=== PATIENT | male | born 1985 | race Caucasian/White ===

== ENCOUNTER 2017-07-15 07:46 | Inpatient (IN) | payer OTHER ==
[~2017-07-15] VITALS: Ht 180.3 cm; Wt 63.5 kg
[2017-07-15 13:49] VITALS: BP 108/63
--- NOTE | 2017-07-15 13:52 | NUR ---
PRE ASSESSMENT: PT IS IN INTAKE A/O X 4. HIS GAIT IS STEADY. SCAB NOTED TO NOSE. HE STATES HE GOT IT SURFING. HE REPORTS ALLERGY TO CECLOR. HE STATES HE DRINKS 750 ML OF WHISKEY 3-4 DAYS WEEKLY AND TAKES VALIUM 30 MG PO ON DAYS HE DOES NOT DRINK WHICH IS 2-3 X WEEKLY. HE STATES THE VALIUM WAS PRESCRIBED TO COME OFF ETOH WHICH HE HAS BEEN UNSUCCESSFUL. HE STATES HE CANNOT STOP DRINKING ON HIS OWN AND NEEDS HELP. PT DENIES SEIZURE HX. HE DENIES MEDICAL HX. WILL ASSESS PT ON UNIT.VS WNL.
[2017-07-15] MEDS ORDERED: THIAMINE HCL 200 MG/2 ML VIAL IM ONE (14:15)
[2017-07-15] MEDS ORDERED: ONDANSETRON 4 MG/2 ML VIAL IM PRN (14:15)
[2017-07-15] MEDS ORDERED: LORAZEPAM 1 MG TABLET PO PRN ×2 (14:15)
[2017-07-15] MEDS ORDERED: ONDANSETRON ODT 4 MG TAB.RAPDIS SL PRN (14:15)
[2017-07-15] MEDS ORDERED: DICYCLOMINE HCL 20 MG TABLET PO PRN (14:15)
[2017-07-15] MEDS ORDERED: LOPERAMIDE HCL 2 MG CAPSULE PO PRN ×2 (14:15)
[2017-07-15] MEDS ORDERED: MAG HYDROX/AL HYDROX/SIMETH 30 ML LIQUID UDC PO PRN (14:15)
[2017-07-15] MEDS ORDERED: MIRALAX 17 GM POWD.PACK PO PRN (14:15)
[2017-07-15] MEDS ORDERED: NICOTINE POLACRILEX 4 MG GUM-PK OF TEN BC PRN (14:15)
[2017-07-15] MEDS ORDERED: MAGNESIUM HYDROXIDE 30 ML LIQUID UDC PO PRN (14:15)
[2017-07-15] MEDS ORDERED: LORAZEPAM 2 MG/1 ML VIAL IM PRN (14:15)
[2017-07-15] MEDS ORDERED: CLONIDINE HCL 0.1 MG TABLET PO PRN (14:15)
[2017-07-15] MEDS ORDERED: IBUPROFEN 400 MG TABLET PO PRN (14:15)
[2017-07-15 14:51] LABS: *AMPHETAMINE, URINE NEGATIVE (NEGATIVE); *BARBITURATE, URINE NEGATIVE (NEGATIVE); *CANNABINOID, URINE POSITIVE (NEGATIVE); *COCCAINE, URINE NEGATIVE (NEGATIVE); *OPIATE, URINE NEGATIVE (NEGATIVE); *PHENCYCLIDINE SCREEN,URINE NEGATIVE (NEGATIVE)
[2017-07-15 15:37] LABS: BASOPHILS % (AUTO) 0.7 % (0.0-2.0); EOSINOPHILS # (AUTO) 0.1 K/uL (0.0-0.7); EOSINOPHILS % (AUTO) 2.2 % (0.0-7.0); HEMATOCRIT 49.5 % (40-50); HEMOGLOBIN 16.2 G/DL (14.0-18.0); LYMPHOCYTES # (AUTO) 1.5 K/UL (0.8-4.8); LYMPHOCYTES % (AUTO) 28.7 % (20.5-51.5); MEAN CORPUSCULAR HEMOGLOBIN 31.4 UUG (27.0-31.0); MEAN CORPUSCULAR HGB CONC 33 g/dL (32.0-37.0); MEAN CORPUSCULAR VOLUME 95.6 FL (82.0-92.0); MONOCYTES # (AUTO) 0.2 K/UL (0.1-1.30); MONOCYTES % (AUTO) 3.8 % (0.0-11.0); NEUTROPHILS # (AUTO) 3.4 K/UL (1.8-8.9); NEUTROPHILS % (AUTO) 64.6 % (38.5-71.5); PLATELET COUNT (AUTO) 274 K/UL (150-450); RED BLOOD CELL COUNT(AUTO) 5.18 MIL/UL (4.7-6.1); WHITE BLOOD COUNT (AUTO) 5.2 K/UL (4.0-11.2)
[2017-07-15] MEDS: LORAZEPAM 1 MG TABLET PO SCH ×3 (15:38→21:13)
--- NOTE | 2017-07-15 15:40 | NUR ---
ADMISSION: A 31 YO MALE ADMITTED FOR MEDICALLY SUPERVISED WITHDRAWAL OF ETOH. HE REPORTS DRINKING 750 ML OF WHISKEY 3 TO 4 TIMES WEEKLY AND ON THE DAYS HE DOES NOT DRINK HE TAKES 30 MG PO OF VALIUM. HE ALSO REPORTS SMOKING 2 JOINTS DAILY OF MARIJUANA. THE VALIUM HE HAS BEEN TAKING FOR 1 MONTH HE WENT TO AND GOT RX TO TRY AND STOP DRINKING ON HIS OWN.HE STATES HE LAST DRANK YESTERDAY LATE AFTERNOON AND TOOK VALIUM THIS AM AROUND 7 AM AND SMOKED A JOINT AT 7AM THIS MORNING.HE STATES [facility] 16 [facility] BEEN IN A TREATMENT FACILITY SINCE THEN . HE HAS BEEN DRINKING IN THIS PATTERN FOR 4 YEARS. HE STATES HE CANNOT STOP DRINKING ON HIS OWN AND NEEDS HELP.HE DENIES SEIZURE HX. HE REPORTS MEDICAL HX OF HEPATITIS C AND CHRONIC LOWER BACK PAIN. HE DENIES A PCP. HE STATES HE LOST HIS JOB DUE TO HIS DRINKING AND HIS IS READY TO LEAVE HIM WITH A BABY ON THE WAY.HE STATES HE BECOMES VERBALLY ABUSIVE WHEN HE DRINKS AND BLACKS OUT. ORIENTED PT TO STAFF AND UNIT. HE PRESENTS WITH FINE TREMORS AND ANXIOUS MOOD. HE REPORTS FEELING ANXIOUS AND RESTLESS. TIERA Butler MD ASSESSED PT. THIAMINE INJECTION ORDERED AND ADMINISTERED. ATIVAN 2 MG PO ALSO ORDERED AND ADMINISTERED. WILL PROVIDE SAFE AND SUPPORTIVE ENVIRONMENT. WILL MONITOR EFFECTIVENESS OF ATIVAN.
[2017-07-15 16:00] VITALS: BP 100/60
[2017-07-15 16:12] LABS: BILIRUBIN,TOTAL 0.5 mg/dL (0.2-1.0); CREATININE 0.9 mg/dL (0.6-1.3); POTASSIUM 3.7 mmol/L (3.5-5.1); TOTAL PROTEIN, SERUM 7.6 g/dL (6.4-8.2)
--- NOTE | 2017-07-15 17:10 | NUR ---
PT IS LAYING IN BED SLEEPING. RESPIRATIONS EVEN AND UNLABORED. CALL VALLADARES IN REACH. BED LOCKED AND LOW. ATIVAN WAS EFFECTIVE . CIWA DEFERRED AT 1600.
--- NOTE | 2017-07-15 19:08 | NUR ---
END OF SHIFT: NEW ADMIT STARTED ON ATIVAN TAPER. HE RECEIVED 2 DOSES. 1600 CIWA DEFERRED HE WAS ASLEEP. ENCOURAGED HIM TO INCREASE FLUIDS. HE IS IN BED WATCHING TV. CALL VALLADARES IN REACH. BED LOCKED AND LOW.
--- NOTE | 2017-07-15 19:50 | NUR ---
START OF SHIFT REPORT RECEIVED FROM AM NURSE. PATIENT IS A 31 YEAR OLD MALE ADMITTED TO [facility] ON 07-15-17 FOR ETOH AND BENZO DETOX. PATIENT HAS ALLERGY TO CECLOR. IS A FULL CODE AND ON A REGULAR DIET. ON FALL AND SEIZURE PRECAUTIONS. PAST MEDICAL HISTORY OF HEPATITIS C AND CHRONIC BACK PAIN. PATIENT ON A FIVE DAY ATIVAN TAPER. LAST CIWA 9 AT 1430. VITAL SIGNS STABLE. DENIES ANY SI OR HI. SAFETY MEASURES IN PLACE, CALL LIGHT WITHIN REACH.
[2017-07-15 20:00] VITALS: BP 120/72
[2017-07-15] MEDS: diphenhydrAMINE 50 MG CAPSULE PO PRN (21:14)
--- NOTE | 2017-07-15 21:14 | NUR ---
PRN MEDICATION BENADRYL 50 MG PO ADMINISTERED AT 2113 FOR COMPLAINTS OF INSOMNIA. EFFECT PENDING.
--- NOTE | 2017-07-15 22:16 | NUR ---
REASSESSMENT OF PATIENT PATIENT REASSESSED ONE HOUR AFTER ADMINISTRATION OF BENADRYL 50 MG PO GIVEN FOR INSOMNIA. PATIENT WITH EYES CLOSED, RESTING COMFORTABLY IN BED. BREATHING EVEN AND UNLABORED. APPEARS EFFECTIVE
[2017-07-16] VITALS: BP 97/57
--- NOTE | 2017-07-16 | NUR ---
CIWA DEFERRED 0000 CIWA DEFERRED FOR SLEEP.
[2017-07-16 04:00] VITALS: BP 98/58
[2017-07-16 06:06] LABS: HEPATITIS B SURFACE AG Negative (Negative)
--- NOTE | 2017-07-16 06:47 | NUR ---
End of shift note Patient is a 31 year old male admitted to [facility] on 07-15-17 for alcohol and benzo detox. Patient is on a five day ativan taper. He is alert and oriented x 4. He is on both seizure and fall precaution. Allergy to Ceclor. Full code regular diet. Vital signs at 2000 BP 120/72,P 92, R 18, SPO2 98% on RA, T 98.2. CIWA 9. VITAL SIGNS AT 0000 BP 97/57, P 70, R 16, SPO2 97% ON RA T 97.7 CIWA DEFERRED FOR SLEEP. VS AT 0400 BP 98/58, P 60, R 16, SPO2 98% ON RA, T 97.9. CIWA 5. Patient received prn Benadryl 50 mg for sleep with good effect. Mood stable, affect flat. Intake: 2500 ML, output: 3 VOIDS. Total hours of sleep 9. Safety measures in place. Report to am nurse.
--- NOTE | 2017-07-16 07:37 | NUR ---
START OF SHIFT Pt 31 y/o male admitted for etoh dependence. Pt received in room with eyes closed resting, but easily arousable to name. Pt alert and oriented to name, place, and time. Perrla. Skin warm and slightly moist to touch. Bilateral hand tremors noted. It was reported that pt slept 9 hours last night. Bed on lowest position with side rails x2 up for safety. Call light within reach. No distress noted at this time.
[2017-07-16 08:00] VITALS: BP 98/62
[2017-07-16] MEDS ORDERED: TUBERCULIN,PURIF.PROT.DERIV. 5 TU/0.1 ML TEST ID ONE (09:00)
[2017-07-16] MEDS: NICOTINE 7 MG/24HR PATCH TD SCH (09:12)
[2017-07-16] MEDS: LORAZEPAM 1 MG TABLET PO SCH ×3 (09:12→20:56)
[2017-07-16] MEDS: THIAMINE HCL 100 MG TABLET PO SCH (09:12)
[2017-07-16] MEDS: FOLIC ACID 1 MG TABLET PO SCH (09:12)
[2017-07-16] MEDS: MULTIVITAMINS,THERAPEUTIC TABLET PO SCH (09:12)
[2017-07-16] MEDS ORDERED: LORAZEPAM 1 MG TABLET PO ONE (12:00)
--- NOTE | 2017-07-16 12:07 | NUR ---
ONE TIME DOSE Pt with ciwa=7.Pt was seen by MD with new order for ativan 2mg po x1 dose noted and carried out.
[2017-07-16 12:08] VITALS: BP 101/60
--- NOTE | 2017-07-16 13:07 | NUR ---
ONE TIME DOSE EVAL Pt with ciwa =3.
[2017-07-16] MEDS: GABAPENTIN 300 MG CAPSULE PO SCH ×2 (14:07→20:56)
[2017-07-16 16:00] VITALS: BP 110/64
--- NOTE | 2017-07-16 17:10 | NUR ---
Therapist prompted client about group times. Client stated he is not feeling well today and will try to go to groups tomorrow.
--- NOTE | 2017-07-16 18:37 | NUR ---
END OF SHIFT Pt 31 y/o male admitted for etoh dependence. Pt alert and oriented to name, place, and time. Perrla. Skin warm and slightly moist to touch. Respirations even and unlabored. Bilateral hand tremors noted. Pt observed mostly isolative to room throughout the day. Pt did not attend group activity. Pt was seen by MD today. Pt medication compliant and tolerated well. No ASE noted. Bed on lowest position with side rails x 2 up for safety. Call light within reach. No distress noted at this time.
--- NOTE | 2017-07-16 19:15 | NUR ---
Start of Shift Note: Patient is a 31 y/o male admitted on 07/15/17 for ETOH and Benzo dependence. Patient reported drinking 750ml of Vodka 3x-4x a week. Patient also taking Valium 30mg PO 2x-3x a week & smokes Marijuana 2 joints daily. Patient has PMHx of Hepatitis C and Chronic Back pain. No seizure history noted. Patient is on a regular diet with allergies to Ceclor. Full Code status noted. Patient is on a 5-day Ativan taper and tolerating well. Pt is currently on day #2 and his last Ciwa is 2 at 1600. Patient received a one time Ativan 2mg @ 1204 per MD's order. No PRN medications were given. Patient is alert & oriented x4. No shortness of breath noted. Respiration even & unlabored. Abdomen soft & non-distended. No nausea/vomiting noted. Patient denies any pain/discomfort. Slight hand tremors noted. Patient denies any hallucinations at this time. Safety measures in place. Bed locked in lowest position. Both side rails up. Call light within pt's reach. Will continue to monitor patient.
[2017-07-16 20:00] VITALS: BP 108/71
[2017-07-16] MEDS: diphenhydrAMINE 50 MG CAPSULE PO PRN (20:56)
--- NOTE | 2017-07-16 20:56 | NUR ---
PRN Benadryl Patient requesting medication to help him sleep. PRN Benadryl administered as ordered. Will continue to monitor patient.
[2017-07-17] VITALS: BP 90/55
[2017-07-17 04:00] VITALS: BP 96/55
--- NOTE | 2017-07-17 07:14 | NUR ---
End of Shift Note: Patient had an uneventful night. Patient continues on his Ativan taper and tolerating well. Last CIWA is 3. Patient reported that medication is effective in controlling his withdrawal symptoms. PRN Benadryl was given to patient during my shift and was effective. Patient remained stable and vitals remains WNL. Patient remains compliant with medications and treatment plan. Patient is alert & oriented x4. No s/s of distress noted. Patient still asleep at this time. Patient slept for a total of 7 hours. Pt consumed 855ml of fluids. Voided 2x with no bowel movement. All needs attended & met. Safety measures in place. Will endorse pt to day shift nurse.
--- NOTE | 2017-07-17 07:20 | NUR ---
Start of Shift Note Report received. Patient is a 31 y/o male admitted on 07/15/17 for ETOH and Benzo dependence. Pt is full code regular diet on fall and seizure precautions reports being allergic to Cefaclor. Patient has PMHx of Hepatitis C and Chronic Back pain. No seizure history noted. Patient is on a 5-day Ativan taper and tolerating well. Pt received PRN Benadryl last night for sleep which was effective per pier hand nurse. Last CIWA is 3 @ 0000. Pt slept a total of 7 hours last night. Encouraged pt to drink fluids to help facilitate with the detox process. Pt currently in bed watching TV. All safety measures in place call light within reach, bed in lowest locked position. Will continue to monitor and provide support.
--- NOTE | 2017-07-17 07:20 | NUR ---
Start Of Shift Report received. Patient is a 31 y/o male admitted on 07/15/17 for ETOH and Benzo dependence. Pt is full code regular diet on fall and seizure precautions reports being allergic to Cefaclor. Patient has PMHx of Hepatitis C and Chronic Back pain. No seizure history noted. Patient is on a 5-day Ativan taper and tolerating well. Pt received PRN Benadryl last night for sleep which was effective per retail shift manager nurse. Last CIWA is 3 @ 0000. Pt slept a total of 7 hours last night. Encouraged pt to drink fluids to help facilitate with the detox process. Pt currently in bed watching TV. All safety measures in place call light within reach, bed in lowest locked position. Will continue to monitor and provide support.
[2017-07-17 08:00] VITALS: BP 114/55
[2017-07-17] MEDS ORDERED: LORAZEPAM 1 MG TABLET PO SCH ×2 (09:00→21:00)
[2017-07-17] MEDS: THIAMINE HCL 100 MG TABLET PO SCH (09:10)
[2017-07-17] MEDS: GABAPENTIN 300 MG CAPSULE PO SCH ×3 (09:10→20:45)
[2017-07-17] MEDS: MULTIVITAMINS,THERAPEUTIC TABLET PO SCH (09:10)
[2017-07-17] MEDS: FOLIC ACID 1 MG TABLET PO SCH (09:11)
[2017-07-17] MEDS: NICOTINE 7 MG/24HR PATCH TD SCH (09:11)
[2017-07-17 12:00] VITALS: BP 119/63
[2017-07-17] MEDS ORDERED: BACLOFEN 20 MG TABLET PO PRN (12:15)
[2017-07-17] MEDS: LORAZEPAM 1 MG TABLET PO SCH ×2 (13:33→17:00)
[2017-07-17 16:00] VITALS: BP 116/68
--- NOTE | 2017-07-17 19:08 | NUR ---
End Of Shift Report given. Patient is a 31 y/o male admitted on 07/15/17 for ETOH and Benzo dependence. Pt is full code regular diet on fall and seizure precautions reports being allergic to Cefaclor. Patient has PMHx of Hepatitis C and Chronic Back pain. No seizure history noted. Patient is on a 5-day Ativan taper and tolerating well. VS monitored closely Q4 hours. Withdrawal symptoms were closely monitored. Initial CIWA 5. Patient encouraged adequate PO fluid intake as tolerated. Patient presented with tremors and anxiety during the day. Last CIWA 2. Per patient, Ativan has been helping him with his withdrawal symptoms. Pt ate all of his meals. Pt received a PRN Baclofen for muscle aches. Medication effective. Patient encouraged to attend group therapies/sessions to learn new coping skills to recent relapse, patient denies SI/HI. Participated in group and therapy sessions. All needs met and attended. Pt endorsed to shipfitters supervisor nurse.
--- NOTE | 2017-07-17 19:15 | NUR ---
Start of Shift Note: Patient is a 31 y/o male admitted on 07/15/17 for ETOH and Benzo dependence. Patient reported drinking 750ml of Vodka 3x-4x a week. Patient also taking Valium 30mg PO 2x-3x a week & smokes Marijuana 2 joints daily. Patient has PMHx of Hepatitis C and Chronic Back pain. No seizure history noted. Patient is on a regular diet with allergies to Cefaclor. Full Code status noted. Patient is on a 5-day Ativan taper and tolerating well. Pt is currently on day #3 and his last Ciwa is 2 at 1600. Patient received a PRN Baclofen during day shift. Patient is alert & oriented x4. No shortness of breath noted. Respiration even & unlabored. Abdomen soft & non-distended. No nausea/vomiting noted. Patient denies any pain/discomfort. Patient presented with complains of anxiety upon assessment. Hand tremors felt. Patient denies any hallucinations at this time. Safety measures in place. Bed locked in lowest position. Both side rails up. Call light within pt's reach. Will continue to monitor patient.
[2017-07-17 20:00] VITALS: BP 109/72
[2017-07-17] MEDS: diphenhydrAMINE 50 MG CAPSULE PO PRN (20:45)
--- NOTE | 2017-07-17 20:45 | NUR ---
PRN Benadryl Patient requesting medication to help him sleep. PRN Benadryl administered as ordered. Will monitor for effectiveness of medication.
--- NOTE | 2017-07-17 23:00 | NUR ---
PRN Reassessment Pt asleep in bed and appears comfortable. No s/s of distress noted. No shortness of breath noted. Safety precautions are in place. Will continue to monitor patient.
[2017-07-18] VITALS: BP 98/76
[2017-07-18 04:00] VITALS: BP 95/64
--- NOTE | 2017-07-18 07:06 | NUR ---
End of Shift Note: Patient had an uneventful night. Patient continues on his Ativan taper and tolerating well. Last CIWA is 2. Patient reported that medication is effective in controlling his withdrawal symptoms. PRN Benadryl was given to patient during my shift and was effective. Patient remained stable and vitals remains WNL. Patient remains compliant with medications and treatment plan. Patient is alert & oriented x4. No s/s of distress noted. Patient still asleep at this time. Patient slept for a total of 7 hours. Pt consumed 1950ml of fluids. Voided 2x with 1x bowel movement. All needs attended & met. Safety measures in place. Will endorse pt to day shift nurse.
--- NOTE | 2017-07-18 07:39 | NUR ---
START OF SHIFT Pt 31 y/o male admitted for etoh dependence. Pt received in room on bed with eyes closed resting, but easily arousable to name. Pt alert and oriented to name, place, and time. Perrla. Skin warm and slightly moist to touch. Respirations even and unlabored. Bilateral hand tremors noted slightly. It was reported that pt slept for 7 hours last night. Bed on lowest position with side rails x2 up for safety. Call light within reach. No distress noted at this time.
[2017-07-18] MEDS: MULTIVITAMINS,THERAPEUTIC TABLET PO SCH (08:14)
[2017-07-18] MEDS: NICOTINE 7 MG/24HR PATCH TD SCH (08:14)
[2017-07-18] MEDS: FOLIC ACID 1 MG TABLET PO SCH (08:14)
[2017-07-18] MEDS: THIAMINE HCL 100 MG TABLET PO SCH (08:14)
[2017-07-18] MEDS: LORAZEPAM 1 MG TABLET PO SCH ×3 (08:14→20:48)
[2017-07-18] MEDS: GABAPENTIN 300 MG CAPSULE PO SCH ×3 (08:14→20:48)
[2017-07-18 08:19] VITALS: BP 118/87
[2017-07-18 12:18] VITALS: BP 119/87
[2017-07-18 16:57] VITALS: BP 114/71
--- NOTE | 2017-07-18 18:29 | NUR ---
END OF SHIFT Pt 31 y/o male admitted for etoh dependence. Pt alert and oriented to name, place, and time. Perrla. Skin warm and slightly moist to touch. Respirations even and unlabored. Bilateral hand tremors noted slightly. Pt observed mostly isolative to room throughout the day. Pt attended group activity today. Pt was seen by MD today. Pt medication compliant and tolerated well. No ASE noted. Bed on lowest position with side rails x 2 up for safety. Call light within reach. No distress noted at this time.
--- NOTE | 2017-07-18 19:15 | NUR ---
Start of Shift Note: Patient is a 31 y/o male admitted on 07/15/17 for ETOH and Benzo dependence. Patient reported drinking 750ml of Vodka 3x-4x a week. Patient also taking Valium 30mg PO 2x-3x a week & smokes Marijuana 2 joints daily. Patient has PMHx of Hepatitis C and Chronic Back pain. No seizure history noted. Patient is on a regular diet with allergies to Cefaclor. Full Code status noted. Patient is on a 5-day Ativan taper and tolerating well. Last Ciwa is 2 at 1600. No PRN medications given during day shift. Patient observed in room sitting in bed and appears calm. Patient is alert & oriented x4. Patient is ambulatory with a steady gait. Upon assessment, Pt shows no s/s of distress. Respiration even & unlabored. Abdomen soft & non-distended. No nausea/vomiting noted. Patient denies any pain/discomfort. Patient denies anxiety & hallucinations at this time. Safety measures in place. Bed locked in lowest position. Both side rails up. Call light within pt's reach. Will continue to monitor patient.
[2017-07-18 20:00] VITALS: BP 111/70
[2017-07-19] VITALS: BP 102/56
[2017-07-19 04:00] VITALS: BP 98/52
--- NOTE | 2017-07-19 07:11 | NUR ---
End of Shift Note: Patient had an uneventful night. Patient continues on his Ativan taper and tolerating well. Last CIWA is 1. Patient reported that medication is effective in controlling his withdrawal symptoms. No PRN medications were given Withdrawal symptoms were closely monitored. Patient remained stable and vitals remains WNL. Patient remains compliant with medications and treatment plan. Patient is alert & oriented x4. No s/s of distress noted. Patient still asleep at this time. Patient slept for a total of 7 hours. Pt consumed 500 ml of fluids. Voided 1x with no bowel movement. All needs attended & met. Safety measures in place. Will endorse pt to day shift nurse.
--- NOTE | 2017-07-19 07:15 | NUR ---
Start of shift note Pt was admitted for ETOH and benzo dependence. Pt has a PMHx of hep C and chronic back pain. Pt is allergic to cefaclor, is a full code and on a regular diet. Pt is on a 5 day ativan taper and tolerating it well. Pt has no complaints at this time. Will continue to monitor pt. All needs addressed at this time.
[2017-07-19 08:00] VITALS: BP 104/53
[2017-07-19] MEDS: NICOTINE 7 MG/24HR PATCH TD SCH (09:00)
[2017-07-19] MEDS: GABAPENTIN 300 MG CAPSULE PO SCH ×3 (09:03→21:29)
[2017-07-19] MEDS: FOLIC ACID 1 MG TABLET PO SCH (09:03)
[2017-07-19] MEDS: THIAMINE HCL 100 MG TABLET PO SCH (09:03)
[2017-07-19] MEDS: LORAZEPAM 1 MG TABLET PO SCH ×2 (09:03→21:29)
[2017-07-19] MEDS: MULTIVITAMINS,THERAPEUTIC TABLET PO SCH (09:03)
[2017-07-19 12:00] VITALS: BP 111/67
[2017-07-19 16:00] VITALS: BP 124/73
--- NOTE | 2017-07-19 18:47 | NUR ---
End of shift note Pt was admitted for ETOH and benzo dependence. Pt has a PMHx of hep C and chronic back pain. Pt is allergic to cefaclor, is a full code and on a regular diet. Pt is on a 5 day ativan taper and tolerating it well without any ASE, and has denied any s/s of withdrawal during the shift. Pt ate 100% of breakfast and dinner and 50% of lunch. Pt Drank 3382 ml of fluids, voided x 5 and had 2 BM's. Pt has no complaints at this time. Will endorse SBAR to oncoming shift.
[2017-07-19 20:00] VITALS: BP 114/70
--- NOTE | 2017-07-19 20:00 | NUR ---
1999 Patient received awake, alert and sitting up on his bed watching television. Patient responds to nurse's greeting and introduction with a smile and, " Hi, I'm fine, how are you?" Patient's color is pink and his skin is warm, dry and intact. Patient is oriented to person, place, day, date, time and his situation. Patient states that he has been eating his Regular diet trays and taking various fluids ad nora with no gastric issues, and he continues to attend [facility] groups regularly. Patient denies any pain or other discomforts presently and he voices no requests. Patient states that he is leaving for rehab in the next few days and he is looking forward to this. Vital signs are: 98.7-93-14 114/70, O2 Sat 98%, COWS 1, CIWA 1. Patient was admitted on 07/15/17 for: Alcohol, Benzo and Marijuana withdrawal and he has been on a 5-Day Ativan medication taper, which he has been apparently tolerating well thus far. Patient is friendly, cooperative and verbally appropriate when interacting with nurse. Bed is locked and in lowest position, bed rails are up X 1 and call light within patient's easy reach.
--- NOTE | 2017-07-20 | NUR ---
Patient refused to be awakened for V/S, COWS, CIWA to be done at this time.
--- NOTE | 2017-07-20 04:00 | NUR ---
Patient refused to be awakened for V/S, COWS, CIWA to be done at this time.
--- NOTE | 2017-07-20 06:30 | NUR ---
0630 Patient slept a total of 7 hours and he had 2 voids and 2 stools. Total intake was 1,791 ml p.o. No prn medications given this shift. V/SS afebrile, last COWS 1, last CIWA 1 at 1999. Patient is presently resting comfortably in stable condition with eyes closed and respirations even, unlabored at 12.
--- NOTE | 2017-07-20 07:53 | NUR ---
START OF SHIFT NOTE Received report from night nurse, 31 year old male admitted for ETOH and Benzo dependence. Patient reported drinking 750ml of Vodka 3x-4x a week. Patient also taking Valium 30mg PO 2x-3x a week & smokes Marijuana 2 joints daily. Patient has PMH of Hepatitis C and Chronic Back pain. No seizure history noted. Patient is cont on a 5-day Ativan taper and tolerating well. Per endorsement pt did not received any PRN'S slept for 7 hours, Last CIWA was -. Received pt in bed awake, alert and oriented x4, educated patient regarding plan of care for the day and medication regimen with good verbal understanding. Safety measures in place. call light kept with in reach, will continue to monitor.
[2017-07-20 08:00] VITALS: BP 116/70
[2017-07-20] MEDS: NICOTINE 7 MG/24HR PATCH TD SCH (08:43)
[2017-07-20] MEDS: GABAPENTIN 300 MG CAPSULE PO SCH ×3 (08:43→20:50)
[2017-07-20] MEDS: FOLIC ACID 1 MG TABLET PO SCH (08:43)
[2017-07-20] MEDS: THIAMINE HCL 100 MG TABLET PO SCH (08:43)
[2017-07-20] MEDS: MULTIVITAMINS,THERAPEUTIC TABLET PO SCH (08:43)
[2017-07-20] MEDS ORDERED: LORAZEPAM 1 MG TABLET PO SCH (09:00)
[2017-07-20 12:00] VITALS: BP 113/67
[2017-07-20 16:00] VITALS: BP_SYST 128; BP_SYST 137; BP_DIAS 78; BP_DIAS 79
[2017-07-20] MEDS ORDERED: DIPH50CA37 PO (18:35)
[2017-07-20] MEDS ORDERED: NICO4GUM38 BC (18:35)
[2017-07-20] MEDS ORDERED: GABA-534 PO (18:35)
[2017-07-20] MEDS ORDERED: IBUP-1953 PO (18:35)
[2017-07-20] MEDS ORDERED: HYDR25CA PO (18:35)
--- NOTE | 2017-07-20 19:06 | NUR ---
END OF SHIFT NOTE Patient completed his 5 days Ativan taper tolerated well. Patient alert and oriented x4, vital signs were stable during shift. Pt scheduled for discharge tomorrow. Skin intact warm and dry to touch. Patient encouraged adequate PO fluid intake as tolerated. Patient encouraged to attend group therapies/sessions to learn new coping skills. Last CIWA-2,Safety measures in place. Call light kept within reach. Patient endorsed to orchid grower nurse in stable condition.
[2017-07-20 20:00] VITALS: BP 122/78
--- NOTE | 2017-07-20 20:05 | NUR ---
START OF SHIFT Received report from day shift nurse. Pt attended a group meeting and returned to his room after. He is a 31 yo male admitted to [facility] on 07/10 for ETOH dependence. He is A&O x4 and ambulatory. Allergic to cefaclor, full code status, and on a regular diet. PMH of Hepatitis C and chronic back pain. On admission he reported drinking whiskey 750mL 3-4x/week, Valium 30mg 2-3x/week, and marijuana 2 joints per day. Pt completed a 5 day Ativan taper and is scheduled for discharge tomorrow. Pt has mild hand tremors. He denies other s/s of withdrawal but requests medication for sleep. He verbalizes that he feels ready for discharge tomorrow. Fall and seizure precautions in place. Bed is down with call light in reach.
[2017-07-20] MEDS: diphenhydrAMINE 50 MG CAPSULE PO PRN (20:50)
--- NOTE | 2017-07-20 20:51 | NUR ---
PRN Benadryl Pt reports inability to sleep. PRN Benadryl administered.
--- NOTE | 2017-07-20 21:50 | NUR ---
PRN Benadryl reassessment PRN Benadryl effective. Pt is lying in bed resting with eyes closed. Respirations even and unlabored. Safety measures in place.
[2017-07-21] VITALS: BP 104/61
--- NOTE | 2017-07-21 | NUR ---
0000 CIWA deferred CIWA ordered Q4HWA. Pt is lying in bed resting with eyes closed. Vital signs obtained. Safety measures in place.
--- NOTE | 2017-07-21 04:00 | NUR ---
0400 Vitals refused/CIWA deferred Pt refused to be woken for 0400 vitals. He is lying in bed resting with eyes closed. Respirations even and unlabored. CIWA ordered Q4HWA. Safety measures in place.
--- NOTE | 2017-07-21 07:05 | NUR ---
END OF SHIFT Report provided to day shift nurse. Pt is lying in bed resting. He is a 31 yo male admitted to [facility] on 07/10 for ETOH dependence. He is A&O and ambulatory. Allergic to cefaclor, full code status, and on a regular diet. PMH of Hepatitis C and chronic back pain. On admission he reported drinking whiskey 750mL 3-4x/week, valium 30mg 2-3x/week, and marijuana 2 joinst per day. Pt completed a 5 day Ativan taper and is scheduled for discharge today. PRN Benadryl administered. Last CIWA 1. He drank 2296mL and slept for 7 hours. Fall and seizure precautions in place. Bed is down with call light in reach.
--- NOTE | 2017-07-21 07:37 | NUR ---
START OF SHIFT NOTE Received report from night nurse, 31 year old male admitted for ETOH and Benzo dependence. Patient reported drinking 750ml of Vodka 3x-4x a week. Patient also taking Valium 30mg PO 2x-3x a week & smokes Marijuana 2 joints daily. Patient has PMH of Hepatitis C and Chronic Back pain. No seizure history noted. Patient completed 5-day Ativan taper tolerated well. Per endorsement pt receive PRN Benadryl effective per night nurse, slept for 7 hours, Last CIWA was 1. Received pt in bed awake, alert and oriented x4, educated patient regarding plan of care for the day and medication regimen with good verbal understanding. Safety measures in place. call light kept with in reach, will continue to monitor.
[2017-07-21 08:00] VITALS: BP 118/71
[2017-07-21] MEDS: GABAPENTIN 300 MG CAPSULE PO SCH (08:15)
[2017-07-21] MEDS: THIAMINE HCL 100 MG TABLET PO SCH (08:15)
[2017-07-21] MEDS: FOLIC ACID 1 MG TABLET PO SCH (08:15)
[2017-07-21] MEDS: MULTIVITAMINS,THERAPEUTIC TABLET PO SCH (08:15)
[2017-07-21] MEDS: NICOTINE 7 MG/24HR PATCH TD SCH (08:16)
--- NOTE | 2017-07-21 09:13 | NUR ---
DISCHARGE NOTE Pt is in stable condition, Vital signs WNL,Pt is alert and oriented x4, Skin intact, Pt denies any SI/HI ideations. All discharge paepr work done and signed. Pt educated about discharge instructions, Pt verbalized understanding. Pt's last CIWA was 1. Pt discharged from [facility] on 07/21/17 at 0913. Pt left the building with all of his belongings and prescriptions, pt did not bring any medications with him to the unit. has been contracted and notified of pt"s discharge.
== END 2017-07-21 09:13 | disposition other institution (70) | DRG 895 ==
LOC: SRC 13:22
PROVIDERS: ADMIT Internal Medicine; ATTEND Internal Medicine
PROC: HZ2ZZZZ Detoxification Services for Substance Abuse Treatment (ICD-10-PCS; principal; 2017-07-15)
PROC: HZ41ZZZ Group Counseling for Substance Abuse Treatment, Behavioral (ICD-10-PCS; 2017-07-17)
DX: F10.232 Alcohol dependence with withdrawal with perceptual disturbance (principal); K70.10 Alcoholic hepatitis without ascites; B19.20 Unspecified viral hepatitis C without hepatic coma; F12.10 Cannabis abuse, uncomplicated; Z80.9 Family history of malignant neoplasm, unspecified; Y90.9 Presence of alcohol in blood, level not specified; Z81.1 Family history of alcohol abuse and dependence; F17.210 Nicotine dependence, cigarettes, uncomplicated
CPT/HCPCS: 36415; 70030-TC; 80307; 80346; 80349; 83735; 85025; 86580; 86592; 86705; 86803; 87340; 87806; A9150; G0480; J3411; Q0163